=== PATIENT | female | born 1965 | race Two or more races ===

== ENCOUNTER 2024-12-14 02:28 | Emergency (ER) | payer MEDICAID, OTHER ==
[~2024-12-14] VITALS: Ht 162.6 cm; Wt 114.0 kg
[2024-12-14 02:29] VITALS: O2SAT 97
[2024-12-14] MEDS: ACETAMINOPHEN 325MG TABLET PO ONE (04:13)
[2024-12-14] MEDS: OXYMETAZOLINE HCL NASAL SPRAY 15ML BOTHNSTRLS SCH (04:14)
[2024-12-14 04:22] LABS: BASOPHILS % 0.5 % (0.0-2.0); EOSINOPHILS % 2.7 % (0.0-5.0); HEMATOCRIT. 43.1 % (36.0-48.0); HEMOGLOBIN. 14.2 g/dL (12.0-16.0); LYMPHOCYTES % 17.9 % (20.0-50.0); MEAN PLATELET VOLUME 9.7 fl (7.4-10.4); MONOCYTES % 6.8 % (2.0-8.0); NEUTROPHILS % 72.1 % (40.0-76.0); PLATELET 223 x1000/uL (130-400); RED BLOOD CELL COUNT 4.95 mill/uL (4.2-5.4); RED CELL DISTRIBUTION WIDTH 14.0 % (11.6-14.6)
[2024-12-14 04:36] LABS: CREATININE 0.7 mg/dL (0.6-1.0); UREA NITROGEN BLOOD 15 mg/dL (9-23)
[2024-12-14 04:49] LABS: INR 1.0
[2024-12-14] MEDS ORDERED: OXYM30SP26 BOTHNSTRLS (05:00)
[2024-12-14 05:17] VITALS: BP 125/79; PULSE 83; RESP 16; TEMP 36.8; O2SAT 98
== END 2024-12-14 05:30 | disposition home or self-care (01) ==
LOC: ER 02:28
DX: R04.0 Epistaxis (principal); R20.2 Paresthesia of skin; R42 Dizziness and giddiness
CPT/HCPCS: 36415; 80048; 85025; 99283